=== PATIENT | female | born 1930 | race Caucasian/White ===

== ENCOUNTER → 2019-01-12 | Outpatient (CLI) | payer MEDICARE ==
--- NOTE | 2019-01-12 15:49 | XR ---
EXAMINATION TYPE: XR Hip Bilateral Complete DATE OF EXAM: 01/12/2019 CLINICAL HISTORY: Bilateral hip pain, greater on right than left. No stated injury. TECHNIQUE: AP and frogleg views of bilateral hips were obtained. COMPARISON: None. FINDINGS: There is no acute fracture/dislocation evident in either hip. The joint space in both hip s appear aligned. On the right there is acetabular over coverage greater than on the left. Acetabula r roof sclerosis and joint space narrowing is greater on the left than right. Femoral heads maintain a normal rounded contour bilaterally. Small cam deformity as an osseous protuberance at the lateral f emoral head neck junction on the left. Extensive atherosclerosis is seen bilaterally. The overlying s oft tissue appears unremarkable. IMPRESSION: 1. No acute fracture or dislocation of either hip. 2. 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 3. Acetabular over coverage greater on the right than left that may predispose this patient to femora l acetabular impingement syndrome. There is also a small cam type deformity of the lateral femoral he ad neck junction.
== END | disposition home or self-care (01) ==
LOC: RADXRMAIN 15:26
PROVIDERS: ATTEND Psychiatry & Neurology Neurology
DX: M16.0 Bilateral primary osteoarthritis of hip (principal); M25.852 Other specified joint disorders, left hip
CPT/HCPCS: 73521

== ENCOUNTER → 2019-01-12 | Outpatient (CLI) | payer MEDICARE ==
--- NOTE | 2019-01-13 01:48 | MR ---
EXAMINATION TYPE: MR brain wo con DATE OF EXAM: 01/12/2019 COMPARISON: None HISTORY: Memory loss, dementia Standard multiplanar, multisequence MRI departmental protocol Multiplanar, multisequence images of the brain were acquired. Diffusion weighted imaging was performe d. FINDINGS: There is cerebral cortical atrophy. There is enlargement of the ventricles. There is no mas s effect nor midline shift. There is no sign of intracranial hemorrhage. There is some thinning of th e corpus callosum. Calvarium appears intact. There is slight increased signal in the white matter adj acent to the lateral ventricles that measures up to 4 mm in thickness. The brainstem is intact. I see no evidence of a cortical infarct. Sella turcica appears normal. IMPRESSION: Cerebral atrophy and mild hydrocephalus. No acute intracranial abnormality. Mild linear white matter changes probably related to hydrocephalus. No evidence of cortical infarct.
== END | disposition home or self-care (01) ==
LOC: RADMRIMAIN 15:43
PROVIDERS: ATTEND Psychiatry & Neurology Neurology
DX: G91.9 Hydrocephalus, unspecified (principal); G31.9 Degenerative disease of nervous system, unspecified; R90.89 Other abnormal findings on diagnostic imaging of central nervous system
CPT/HCPCS: 70551